=== PATIENT | male | born 1930 | race Caucasian/White ===

== ENCOUNTER 2018-12-08 20:14 | Emergency (ER) | payer OTHER ==
[~2018-12-08] VITALS: Ht 152.4 cm; Wt 54.0 kg
[2018-12-08 20:23] VITALS: BP_SYST 133
--- NOTE | 2018-12-08 20:28 | NUR ---
Placed in room 03 . Placed on threat monitoring analyst, blood pressure machine and pulse oximeter. To gown for exam. Side rails up.
--- NOTE | 2018-12-08 20:32 | NUR ---
Pt BIBA from home c/o generalized weakness. Per paramedics, family noticed patient was more weak than usual. Pt is AAO x 2. Pt denies chest pain but states he has generalized pain. Pt is on 4L of oxygen at home. No other injuries/complaints per patient or noted.
--- NOTE | 2018-12-08 21:04 | NUR ---
ER Dr. Mann at bedside examining patient.
[2018-12-08] MEDS ORDERED: NACL 0.9% 1,000 ML IV ONE (21:11)
[2018-12-08 21:30] LABS: BASOPHILS # (AUTO) 0.1 K/uL (0.0-0.2); BASOPHILS % (AUTO) 0.8 % (0.0-2.0); EOSINOPHILS # (AUTO) 0.3 K/uL (0.0-0.4); EOSINOPHILS % (AUTO) 4.2 % (0.0-4.0); HEMATOCRIT 45.3 % (36-54); HEMOGLOBIN 15.5 g/dL (14.0-18.0); LYMPHOCYTES # (AUTO) 1.6 K/uL (1.0-5.5); LYMPHOCYTES % (AUTO) 22.4 % (20.5-51.5); MEAN CORPUSCULAR HEMOGLOBIN 34 pg (27-31); MEAN CORPUSCULAR HGB CONC 34 % (32-36); MEAN CORPUSCULAR VOLUME 100 fL (79.0-98.0); MONOCYTES # (AUTO) 0.9 K/uL (0.0-1.0); MONOCYTES % (AUTO) 12.5 % (1.7-9.3); NEUTROPHILS # (AUTO) 4.2 K/uL (1.8-7.7); NEUTROPHILS % (AUTO) 60.1 % (40.0-70.0); PLATELET COUNT (AUTO) 183 K/uL (130-430); RED BLOOD CELL COUNT(AUTO) 4.54 MIL/uL (4.2-6.2); RED CELL DISTRIBUTION WIDTH 14.2 % (9.0-15.0); WHITE BLOOD COUNT (AUTO) 7.1 K/uL (4.8-10.8)
[2018-12-08 21:40] LABS: ANION GAP 6 (5-15); CALCIUM 9.7 mg/dL (8.4-11.0); CHLORIDE 103 mmol/L (98-107); CREATININE 1.68 mg/dL (0.55-1.30); GLUCOSE 93 mg/dL (70-99); POTASSIUM 3.6 mmol/L (3.5-5.1); SODIUM SERUM 141 mmol/L (136-145); UREA NITROGEN, BLOOD 24 mg/dL (8-21)
--- NOTE | 2018-12-08 21:40 | NUR ---
Pt was given urinal and asked to provide urine sample. Pt stated "I will try."
[2018-12-08 21:45] LABS: ALANINE AMINOTRANSFERASE 9 U/L (12-78); ALBUMIN 3.4 g/dL (3.4-4.8); ASPARTATE AMINOTRANSFERASE 14 U/L (10-37); TOTAL BILIRUBIN 0.4 mg/dL (0.0-1.0)
[2018-12-08 21:52] LABS: PROTHROMBIN TIME 10.4 SECS (9.5-12.5)
--- NOTE | 2018-12-08 22:15 | NUR ---
Pt was unable to provide urine sample. Pt was asked if we can collect straight catheter. Pt refused. Dr. Mann made aware.
--- NOTE | 2018-12-08 23:20 | NUR ---
Patient was unable to provide urine sample. Pt was asked if we can collect straight catheter. Pt refused. Dr. Mann made aware.
--- NOTE | 2018-12-08 23:41 | NUR ---
Patient's son, Alberto Bartholomew, asked for us to call him later on to give update on patient. Phone number was given : .
--- NOTE | 2018-12-09 00:25 | NUR ---
asked patient if we can collect urine with a straight cath. Pt refused. Dr. Mann made aware.
--- NOTE | 2018-12-09 01:12 | NUR ---
Pt unable to urinate. Pt refused to have straight catheter. Dr. Mann made aware.
[2018-12-09] MEDS ORDERED: NACL 0.9% 1,000 ML IV ONE (02:00)
--- NOTE | 2018-12-09 03:12 | NUR ---
# 14 FR In and Out catheter with use of sterile technique. Immediate return of 1000 ml dark yellow urine noted. Urine sample collected and sent to lab. Pt tolerated procedure well.
[2018-12-09 03:29] LABS: BILIRUBIN,URINE NEGATIVE (NEGATIVE); BLOOD, URINE NEGATIVE (NEGATIVE); CLARITY/URINE SL HAZY (CLEAR); COLOR,URINE YELLOW (YELLOW); GLUCOSE,URINE NEGATIVE (NEGATIVE); KETONES,URINE NEGATIVE (NEGATIVE); LEUKOCYTE ESTERASE ,URINE 2+ (NEGATIVE); NITRITE, URINE POSITIVE (NEGATIVE); PROTEIN URINE NEGATIVE (NEGATIVE); UROBILINOGEN,URINE 0.2 (0.2-1.0)
[2018-12-09 03:38] LABS: RBC,URINE 0-3 /HPF (0-3)
[2018-12-09 03:39] LABS: BACTERIA,URINE MODERATE /HPF (None Seen); HYALINE CASTS, URINE 0-10 /LPF (None Seen); YEAST,URINE Few /HPF (None Seen)
[2018-12-09] MEDS ORDERED: cefTRIAXone 1 GM IVPB PREMIX 50 ML IV ONE (04:00)
--- NOTE | 2018-12-09 04:28 | NUR ---
Pt sleeping comfortably in bed. No acute distress, will continue to monitor.
--- NOTE | 2018-12-09 05:05 | NUR ---
Pt resting comfortably in bed. No acute distress, will continue to monitor.
--- NOTE | 2018-12-09 05:30 | NUR ---
Called son and informed him patient is to be discharged and needs a ride home. Son stated he will pick patient up in an hour. Notified patient and Dr. Mann.
[2018-12-09 07:00] VITALS: BP_SYST 128
--- NOTE | 2018-12-09 07:00 | NUR ---
Patient given written and verbal discharge instructions and verbalizes understanding. ER MD discussed with patient the results and treatment provided. Patient in stable condition. ID arm band removed. IV catheter removed intact and dressing applied, no active bleeding. Rx of Keflex given. Patient educated on pain management and to follow up with PMD. Pain Scale 0. Opportunity for questions provided and answered. Medication side effect fact sheet provided.
--- NOTE | 2018-12-11 14:49 | NUR ---
RECEIVED +URINE CULTURE, DISCUSSED WITH DR PINEDA. CALLED AND LEFT MESSAGE FOR PT TO CALL BACK. . NEED ABX CHANGE TO LEVAQUIN 500MG PO DAILY X10 TABS
== END 2018-12-09 07:00 | disposition home or self-care (01) ==
LOC: SED 20:14
DX: R53.1 Weakness (principal); J44.9 Chronic obstructive pulmonary disease, unspecified; F03.90 Unspecified dementia, unspecified severity, without behavioral disturbance, psychotic disturbance, mood disturbance, and anxiety
CPT/HCPCS: 36415; 71045; 80053; 81000; 83605; 84484; 85025; 85610; 85730; 87040; 87086; 87186; 93005; 96365; 99284; J0696; J7030 ×2